=== PATIENT | female | born 1975 | race Caucasian/White ===

== ENCOUNTER 2019-10-28 09:49 | Outpatient (CLI) | payer OTHER ==
--- NOTE | 2019-10-28 11:12 | MMO ---
Bilateral MAMMO Bilat Screen [facility]. CLINICAL HISTORY: Patient is 44 years old and is seen for screening. The patient has the following family history of breast cancer: maternal grandmother, malignant (generic) and cousin female, at age 30, malignant (generic). The patient has no personal history of cancer. VIEWS: The views performed were: bilateral craniocaudal with tomosynthesis and bilateral mediolateral oblique with tomosynthesis. FILMS COMPARED: The present examination has been compared to a prior imaging study performed at [facility] on 10/25/2015. This study has been interpreted with the assistance of computer-aided detection. MAMMOGRAM FINDINGS: There are scattered fibroglandular densities. There is an asymmetry seen in the anterior upper-outer region of the right breast, . In the left breast, there are no suspicious masses, calcifications or areas of architectural distortion. IMPRESSION: ASYMMETRY IN THE RIGHT BREAST REQUIRES ADDITIONAL EVALUATION. ADDITIONAL IMAGING. THE RESULTS OF THIS EXAM WERE SENT TO THE PATIENT. ACR BI-RADS Category 0 - Incomplete: Need additional imaging evaluation. [facility] will notify the patient of the need for additional imaging services. MAMMOGRAPHY NOTE: 1. A negative mammogram report should not delay a biopsy if a dominant of clinically suspicious mass is present. 2. Approximately 10% to 15% of breast cancers are not detected by mammography. 3. Adenosis and dense breasts may obscure an underlying neoplasm. Reported by: AMBREEN PERKINS MD Electonically Signed: [id number]
== END 2019-10-28 09:50 | disposition home or self-care (01) ==
LOC: BICMAMMO 09:49
PROVIDERS: ATTEND Physician Assistant
DX: Z12.31 Encounter for screening mammogram for malignant neoplasm of breast (principal); N64.89 Other specified disorders of breast; Z80.3 Family history of malignant neoplasm of breast
CPT/HCPCS: 77063; 77067

== ENCOUNTER 2019-11-03 09:52 | Outpatient (CLI) | payer OTHER ==
--- NOTE | 2019-11-03 10:35 | MMO ---
Right Breast MAMMO Unilat Diag [facility]. CLINICAL HISTORY: Patient is 44 years old and is seen for additional evaluation requested from prior study. The patient has the following family history of breast cancer: maternal grandmother, malignant (generic) and cousin female, at age 30, malignant (generic). The patient has no personal history of cancer. VIEWS: The views performed were: right craniocaudal with tomosynthesis; right mediolateral oblique with tomosynthesis; and right mediolateral with tomosynthesis. FILMS COMPARED: The present examination has been compared to prior imaging studies performed at [facility] on 10/25/2015, 10/28/2019 and 11/03/2019. This study has been interpreted with the assistance of computer-aided detection. MAMMOGRAM FINDINGS: There are scattered fibroglandular densities. Right breast cluster of microcysts. There are no suspicious masses, suspicious calcifications, or new areas of architectural distortion. IMPRESSION: THERE IS NO MAMMOGRAPHIC EVIDENCE OF MALIGNANCY. A ROUTINE FOLLOW-UP MAMMOGRAM IN 1 YEAR IS RECOMMENDED. THE RESULTS OF THIS EXAM WERE SENT TO THE PATIENT. ACR BI-RADS Category 2 - Benign finding MAMMOGRAPHY NOTE: 1. A negative mammogram report should not delay a biopsy if a dominant of clinically suspicious mass is present. 2. Approximately 10% to 15% of breast cancers are not detected by mammography. 3. Adenosis and dense breasts may obscure an underlying neoplasm. Reported by: Branden MARTIN Electonically Signed: [id number]
--- NOTE | 2019-11-03 12:04 | ULT ---
ULTRASOUND RIGHT BREAST: Date: 11/03/2019 HISTORY: Callback, asymmetry. COMPARISON: Mammogram same date. FINDINGS: Corresponding to mammographic finding at 11 o'clock right breast is a superficial cluster of microcys ts. There is also an acute simple cyst at 12 o'clock. IMPRESSION: BI-RADS Category 2 - Benign findings. Continued screening is recommended.
== END 2019-11-03 09:53 | disposition home or self-care (01) ==
LOC: BICMAMMO 09:52
PROVIDERS: ATTEND Physician Assistant
DX: R92.2 Inconclusive mammogram (principal)
CPT/HCPCS: G0279

== ENCOUNTER 2020-11-02 15:59 | Outpatient (CLI) | payer OTHER | END 2020-11-02 16:00 | disposition home or self-care (01) | LOC: BICMAMMO 15:59 | PROVIDERS: ATTEND Obstetrics & Gynecology | DX: Z12.31 Encounter for screening mammogram for malignant neoplasm of breast (principal); Z80.3 Family history of malignant neoplasm of breast | CPT/HCPCS: 77063; 77067 ==

== ENCOUNTER 2021-05-13 12:44 | Outpatient (CLI) | payer OTHER | END 2021-05-13 12:45 | disposition home or self-care (01) | LOC: BICMRI 12:44 | PROVIDERS: ATTEND Surgery | DX: R92.8 Other abnormal and inconclusive findings on diagnostic imaging of breast (principal); Z80.3 Family history of malignant neoplasm of breast | CPT/HCPCS: A9577; C8908 ==

== ENCOUNTER 2022-06-06 10:51 | Outpatient (CLI) | payer BC | END 2022-06-06 10:52 | disposition home or self-care (01) | LOC: BICMAMMO 10:51 | PROVIDERS: ATTEND Nurse Practitioner Family | DX: Z12.31 Encounter for screening mammogram for malignant neoplasm of breast (principal); Z80.3 Family history of malignant neoplasm of breast; N63.20 Unspecified lump in the left breast, unspecified quadrant | CPT/HCPCS: 77063; 77067 ==

== ENCOUNTER 2022-06-28 14:02 | Outpatient (CLI) | payer BC | END 2022-06-28 14:03 | disposition home or self-care (01) | LOC: BICULT 14:02 | PROVIDERS: ATTEND Nurse Practitioner Family | DX: N63.20 Unspecified lump in the left breast, unspecified quadrant (principal) ==